=== PATIENT | male | born 1985 | race Two or more races ===

== ENCOUNTER 2023-12-08 15:30 | Emergency (ER) | payer BC, OTHER ==
[~2023-12-08] VITALS: Ht 172.7 cm; Wt 88.6 kg
[2023-12-08 16:14] LABS: Urine Bacteria None Seen /hpf (None Seen)
[2023-12-08 16:59] LABS: Urine Blood Negative /uL (Negative); Urine Clarity Clear (Clear); Urine Color Yellow (Yellow); Urine Mucus FEW (None Seen); Urine Protein, UAD 1+ (Negative); Urine Specific Gravity 1.023 (1.001-1.035); Urine Urobilinogen Normal (Negative); Urine WBC 2 /hpf (0 - 3)
[2023-12-08 17:01] LABS: Basophils # (auto) 0 10 ^3/uL (0-0.2); Basophils % (auto) 0.1 % (0.0-2.0); Eosinophils # (auto) 0.1 10 ^3/uL (0-0.8); Eosinophils % (auto) 0.4 % (0.0-7.0); Hematocrit 51.2 % (41.0-53.0); Hemoglobin 17.3 g/dL (13.5-17.5); Lymphocytes # (auto) 0.4 10 ^3/uL (0.4-5.4); Lymphocytes % (auto) 3.2 % (10.0-50.0); Mean Corpuscular Hemoglobin 28.9 pg (28.0-32.0); Mean Corpuscular Hgb Conc. 33.9 g/dL (32.0-36.0); Mean Corpuscular Volume 85.3 fL (80.0-100.0); Monocytes # (auto) 0.4 10 ^3/uL (0-1.3); Monocytes % (auto) 3.4 % (0.0-12.0); Neutrophils # (auto) 12.1 10 ^3/uL (1.6-8.6); Neutrophils % (auto) 92.9 % (37.0-80.0); Nucleated Red Blood Cells % 0.9 %; Platelet Count (auto) 203 10^3/uL (140-450); Red Cell Distribution Width 16.1 % (11.8-14.3)
[2023-12-08 17:28] LABS: Alanine Aminotransferase 25 U/L (7-40); Albumin 5.4 g/dL (3.2-4.8); Alkaline Phosphatase 95 U/L (46-116); Anion Gap 9 (5-15); Aspartate Aminotransferase 19 U/L (13-40); BUN/Creatinine Ratio 9.5 (10.0-20.0); Blood Urea Nitrogen 9 mg/dL (9-23); Calcium 10.5 mg/dL (8.7-10.4); Carbon Dioxide 25 mmol/L (20-31); Chloride 106 mmol/L (98-107); Glucose 107 mg/dL (74-106); Lipase 47 U/L (12-53); Potassium 4.2 mmol/L (3.5-5.1); Sodium 140 mmol/L (136-145)
[2023-12-08 17:29] LABS: Bilirubin, Total 1.3 mg/dL (0.2-1.0); Total Protein 8.6 g/dL (5.7-8.2)
[2023-12-08 19:15] VITALS: BP 122/84; PULSE 108; RESP 16; TEMP 98; O2SAT 97
== END 2023-12-08 19:25 | disposition home or self-care (01) ==
LOC: ER 15:32 → EDBD 15:32 → ER 19:19
DX: R10.13 Epigastric pain (principal)
CPT/HCPCS: 36415; 76705; 80053; 81001; 83690; 85025